=== PATIENT | female | born 1990 | race Caucasian/White ===

== ENCOUNTER 2016-10-19 20:34 | Emergency (ER) | payer BC, OTHER ==
[2016-10-19] MEDS ORDERED: NS 1,000 ML IV ONE (20:37)
[2016-10-19] MEDS ORDERED: ONDANSETRON 4 MG/2 ML VIAL IVP ONE (20:37)
--- NOTE | 2016-10-19 20:39 | EDPHY ---
H & P HPI/ROS: CHIEF COMPLAINT: N/V/D. HISTORY OF PRESENT ILLNESS: The patient is a 26-year-old female who presents with nausea, vomiting, and diarrhea. Onset of nausea at 1500 today (5 hours ago ). She flew into [place] this morning and began to feel nauseated soon after eating pizza. Onset of multiple episodes vomiting and diarrhea since then. Associated with chills. She has tried Promethazine, charcoal pills, and marijuana to no effect. Unable to tolerate any oral fluids or food. She denies abdominal pain, fever, shortness of breath, or other complaints. EMS administered 4mg IV Zofran and 500ml IV saline en route. She continues to have moderate nausea. REVIEW OF SYSTEMS: A complete 10-point review of systems was performed and is negative except for those items mentioned in the HPI. Past Medical/Surgical History: Anxiety, depression. Social History: Flew into [place] today. Physical Exam: General Appearance: Alert, pale, nontoxic appearing Eyes: Pupils equal and round, no conjunctival pallor ENT, Mouth: Mucous membranes moist Neck: Normal inspection Respiratory: Lungs are clear to auscultation Cardiovascular: Regular rate and rhythm Gastrointestinal: Abdomen is soft and nontender Neurological: A&O, nonfocal, normal gait Skin: Warm and dry, no rash Extremities: Normal inspection Psychiatric: Mood and affect normal Constitutional: Initial Vital Signs Temperature (C) 36.9 C 10/19/16 20:37 Heart Rate 68 10/19/16 20:37 Respiratory Rate 14 10/19/16 20:37 Blood Pressure 128/79 H 10/19/16 20:37 O2 Sat (%) 94 10/19/16 20:37 O2 Delivery Mode Room Air Allergies/Adverse Reactions: Penicillins Allergy (Verified 10/19/16 20:43) Medical Decision Making ED Course/Re-evaluation: 26-year-old female presents with 5 hours of nausea, vomiting, and diarrhea. She flew into [place] this morning and ate a pizza and the symptoms onset soon after. She has no associated symptoms. She has taken Promethazine, charcoal pills, and marijuana to no effect.. An IV was established. test ordered. 4mg IV Zofran and 1L IV saline administered for nausea and rehydration. The patient feels better after IV fluids and Zofran. Abdomen remained soft and nontender. She will be discharged home with a prepack of Zofran. Differential Diagnosis: The differential diagnosis for the patient's nausea and vomiting included but was not limited to appendicitis, small-bowel obstruction, cholecystitis, gastroenteritis, gastritis, and medication side effect. - Data Points Laboratory Results: 10/19/16 21:15 Beta HCG, Qual NEGATIVE Medications Given: Discontinued Medications Sodium Chloride (Ns) 1,000 mls @ 0 mls/hr IV ONCE ONE PRN Reason: Wide Open Stop: 10/19/16 20:38 Last Admin: 10/19/16 21:00 Dose: 1,000 mls Ondansetron HCl (Zofran) 4 mg IVP EDNOW ONE Stop: 10/19/16 20:38 Last Admin: 10/19/16 21:00 Dose: 4 mg Departure - Departure Disposition: Home, Routine, Self-Care Clinical Impression: Nausea & vomiting Qualifiers: Vomiting type: unspecified Vomiting Intractability: non-intractable Qualified Code(s): R11.2 - Nausea with vomiting, unspecified Diarrhea Qualifiers: Diarrhea type: unspecified type Qualified Code(s): R19.7 - Diarrhea, unspecified Condition: Good Instructions: Ondansetron (By mouth), Acute Nausea and Vomiting (ED), Acute Diarrhea (ED) Additional Instructions: Drink only clear fluids for the next 24 hours. Advance diet slowly as tolerable. Take Zofran 1 tablet under your tongue every 6 hours as needed for nausea. Follow up with a primary care provider for reevaluation if you have ongoing symptoms. You have been provided the telephone number of Dr. Moser, outpatient medicine. Return to the emergency department if you experience any serious worsening of condition. Referrals: Ifeoma Moser DO [Doctor of Osteopathy] - As per Instructions Report Scribed for: Megan Calloway Report Scribed by: Anil Pan Date of Report: 10/19/16 Time of Report: 20:36 Physician Review and Approval Statement: 10/19/16 20:37 Portions of this note were transcribed by a biomedical equipment support specialist. I personally performed a history, physical exam, medical decision making, and confirmed accuracy of information the transcribed note.
[2016-10-19] MEDS ORDERED: ONDANSETRON 4MG PREPACK#2 BTL TAKEHOME ONE ×2 (22:00)
[2016-10-19 22:07] VITALS: BP 121/65; PULSE 65; RESP 16; TEMP 98.2; O2SAT 95
== END 2016-10-19 22:07 | disposition home or self-care (01) ==
DX: R11.2 Nausea with vomiting, unspecified (principal); R19.7 Diarrhea, unspecified
CPT/HCPCS: 96374; J2405